=== PATIENT | male | born 1950 | race American Indian/Alaskan Native ===

== ENCOUNTER 2018-10-22 07:50 | Outpatient (CLI) | payer MEDICARE ==
--- NOTE | 2018-10-22 08:57 | Cat Scan Report ---
CT SCAN OF THE CERVICAL SPINE: HISTORY: Cervical pain, left arm pain and numbness. TECHNIQUE: Contiguous 1.25 mm axial images of the cervical spine were obtained. Sagittal and coronal reformatted images. FINDINGS: There is straightening of the normal cervical lordosis. There is normal height and alignment of the cervical vertebral bodies otherwise. The posterior elements are in appropriate relationship. Moderate to severe degenerative disc space narrowing and endplate spurring is identified throughout the cervical spine. The most affected levels are C4-5, C5-6, C6-7 and C7-T1. There is no evidence for displaced fracture, subluxation or bone lesion. Although intraspinal contents is limited on noncontrast CT, there is no evidence for high-grade central canal stenosis or epidural process. C2-3: No significant abnormality. C3-4: Mild bilateral uncovertebral spurring. No significant abnormality. C4-5: Mild bilateral uncovertebral spurring is identified. Left neural foraminal narrowing is estimated at 25%. C5-6: Moderate posterior and bilateral uncovertebral spurring is identified. Bilateral neural foraminal narrowing is estimated at 50%. The left side is slightly more affected. C6-7: Moderate bilateral uncovertebral spurring is identified. Bilateral neural foraminal narrowing is estimated at 50%. The left side is slightly more affected. C7-T1: Moderate posterior and bilateral uncovertebral spurring is identified. Bilateral neural foraminal narrowing is estimated at 50-75%. The left side slightly more affected. IMPRESSION: No acute process. Moderate multilevel degenerative disc disease is identified as outlined above. Multilevel mild to moderate left neural foraminal narrowing is identified. Please see above.
== END 2018-10-22 07:51 | disposition home or self-care (01) ==
LOC: CT 07:50
PROVIDERS: ATTEND Internal Medicine
DX: M50.323 Other cervical disc degeneration at C6-C7 level (principal); M48.02 Spinal stenosis, cervical region; M79.642 Pain in left hand; R20.0 Anesthesia of skin; E78.00 Pure hypercholesterolemia, unspecified; I10 Essential (primary) hypertension
CPT/HCPCS: 72125

== ENCOUNTER 2019-12-25 09:24 | Outpatient (CLI) | payer MEDICARE ==
--- NOTE | 2019-12-25 10:25 | XRay Report ---
CHEST 2 VIEWS INDICATION: [id number] (primary) hypertension/G47.30Sleep apnea, unspecifie. COMPARISON: None FINDINGS: Support devices: None. Heart: Within normal limits. Lungs/pleura: No acute air space or interstitial disease. No pneumothorax. Additional findings: None. IMPRESSION: Unremarkable chest films. Signer Name: Andrew Beckford Jr, MD Signed: 12/25/2019 10:20 AM Workstation Name: [id number]
--- NOTE | 2019-12-25 12:02 | Fluoroscopy Report ---
UPPER GI HISTORY: POSSIBLE GE REFLUX/G47.30Sleep apnea, unspecified/E66.1Morbid (se. TECHNIQUE: Single and double contrast barium technique utilized to evaluate the esophagus, stomach, and duodenal C-loop. FINDINGS: To begin the exam, swallowing was evaluated in the lateral position under direct fluorosco py. Swallowing was normal. No mucosal irregularity, mass, mass effect, or critical stenosis. Gastric motility appeared slightl y decreased throughout this exam. Mild gastroparesis could be considered. No hiatal hernia or gastroe sophageal reflux was witnessed. The duodenal bulb and duodenal sweep are unremarkable. IMPRESSION: Findings suggestive of mild gastroparesis. No evidence for reflux or mucosal lesion. Fluoroscopic time: 1.9 minutes Number of fluoroscopic images: 29 Signer Name: Andrew Beckford Jr, MD Signed: 12/25/2019 11:58 AM Workstation Name: [id number]
== END 2019-12-25 09:25 | disposition home or self-care (01) ==
LOC: FLUORO 09:24
PROVIDERS: ATTEND Internal Medicine
DX: G47.30 Sleep apnea, unspecified (principal); I10 Essential (primary) hypertension; E78.00 Pure hypercholesterolemia, unspecified; E66.01 Morbid (severe) obesity due to excess calories
CPT/HCPCS: 71046; 74246